=== PATIENT | male | born 1975 | race Hispanic/Latino ===

== ENCOUNTER 2024-02-08 12:20 | Inpatient (IN) | payer BC ==
[~2024-02-08] VITALS: Ht 172.7 cm; Wt 113.0 kg
[~2024-02-08 12:20] MED LIST: ACET-2079 PO
[2024-02-08] MEDS: KETOROLAC 30MG VIAL (30MG/ML) IVP ONE (13:50)
[2024-02-08] MEDS: 0.9%NACL 1000ML 1,000 ML IV ONE (13:50)
[2024-02-08 14:11] LABS: BASOPHILS # (AUTO) 0.02 K/uL (0.00-0.20); BASOPHILS % (AUTO) 0.3 % (0.0-5.0); EOSINOPHILS # (AUTO) 0.07 K/uL (0.00-0.70); HEMATOCRIT 41.8 % (42-54); IMMATURE GRANULOCYTE ABSOLUTE 0.02 K/uL (0-1); LYMPHOCYTES # (AUTO) 1.1 K/uL (1.0-4.8); LYMPHOCYTES % (AUTO) 15.6 % (21.0-51.0); MEAN CORPUSCULAR HGB CONC 35.4 g/dL (32.0-36.0); MEAN CORPUSCULAR VOLUME 84.8 fL (79-99); MONOCYTES # (AUTO) 0.6 K/uL (0.1-1.0); MONOCYTES % (AUTO) 7.7 % (3.0-13.0); NEUTROPHILS # (AUTO) 5.5 K/uL (1.8-7.7); NEUTROPHILS % (AUTO) 75.1 % (40.0-77.0); PLATELET COUNT (AUTO) 142 K/uL (130-400); RED BLOOD CELL COUNT(AUTO) 4.93 MIL/uL (4.50-6.20); RED CELL DISTRIBUTION WIDTH 12.5 % (11.0-15.5); WHITE BLOOD COUNT (AUTO) 7.3 K/uL (4.8-10.8)
[2024-02-08 14:23] LABS: ALBUMIN 3.2 g/dL (3.5-5.0); BILIRUBIN,TOTAL 0.8 mg/dL (0.2-1.0); CREATININE 1.1 mg/dL (0.5-1.3); POTASSIUM 3.1 mmol/L (3.5-5.1); TOTAL PROTEIN, SERUM 7.3 g/dL (6.0-8.3)
[2024-02-08 14:51] LABS: APPEARANCE,URINE CLEAR (CLEAR); BILIRUBIN,URINE NEGATIVE (NEGATIVE); COLOR,URINE YELLOW (YELLOW); GLUCOSE, URINE (UA) 50 mg/dL (NEGATIVE); KETONES,URINE NEGATIVE (NEGATIVE); LEUKOCYTE ESTERASE ,URINE NEGATIVE Leu/uL (NEGATIVE); NITRATE,URINE NEGATIVE (NEGATIVE); OCCULT BLOOD,URINE NEGATIVE (NEGATIVE); PROTEIN,URINE 30 mg/dL (NEGATIVE); UROBILINOGEN,URINE 0.2 mg/dL (0.2-1.0)
[2024-02-08 14:52] LABS: ADD UA MICROSCOPIC YES; MUCUS,URINE FEW LPF (None Seen); RBC,URINE 0-1 /HPF (0-1); SQUAMOUS EPITHELIAL CELL,UR RARE /HPF (0-2)
[2024-02-08] MEDS: ZOSYN 3.375GM +NS 50ML IVPB ONE (16:02)
[2024-02-08] MEDS: POTASSIUM BICARB/CIT AC 25 MEQ TABLET.EFF PO ONE (16:50)
[2024-02-08] MEDS ORDERED: GUAIFENESIN SUGAR-FREE 100 MG/5 ML UDCUP PO PRN (17:00)
[2024-02-08] MEDS ORDERED: LACTULOSE 20 GM/30 ML UDCUP PO PRN (17:00)
[2024-02-08] MEDS ORDERED: MAG/ALUM/SIMETH 30 ML UDCUP PO PRN (17:00)
[2024-02-08] MEDS ORDERED: DOCUSATE SODIUM 100 MG CAP PO PRN (17:00)
[2024-02-08] MEDS ORDERED: NITROGLYCERIN 0.4 MG SL TAB SL PRN (17:00)
[2024-02-08] MEDS ORDERED: GUAIFENESIN-DM 200/20 MG 10 ML PO PRN (17:00)
[2024-02-08] MEDS ORDERED: DIPHENHYDRAMINE HCL 25 MG CAPSULE PO PRN (17:00)
[2024-02-08] MEDS ORDERED: ALPRAZOLAM 0.5 MG TABLET PO PRN (17:00)
[2024-02-08] MEDS ORDERED: ACETAMINOPHEN 325 MG TAB PO PRN (17:00)
[2024-02-08] MEDS ORDERED: DiphenhydrAMINE HCL 50 MG/ML VIAL IV PRN (17:00)
[2024-02-08] MEDS: INSULIN LISPRO 100 UNIT/ML 3ML SQ SCH (17:16)
[2024-02-08] MEDS ORDERED: METRONIDAZOLE 500MG/100ML BAG IV SCH (17:30)
[2024-02-08] MEDS: 0.9%NACL 1000ML 1,000 ML IV SCH (17:33)
[2024-02-08] MEDS: METRONIDAZOLE 500MG/100ML BAG IV SCH (17:33)
[2024-02-08 18:04] LABS: INR <= 0.93 (0.85-1.15); PROTHROMBIN TIME 10.3 SEC (9.6-11.6)
[2024-02-08 18:05] LABS: PARTIAL THROMBOPLASTIN TIME 26.1 SEC (26.3-35.5)
[2024-02-08] MEDS: LEVOFLOXACIN 500 MG/D5W 100 ML 100 ML IV SCH (18:31)
[2024-02-08] MEDS: MEROPENEM 1 GM in 0.9%NACL 100ML 100 ML IVPB SCH (19:49)
[2024-02-08] MEDS: MEROPENEM 1 GM VIAL ONE (19:49)
[2024-02-08] MEDS: FAMOTIDINE 20MG TAB PO SCH (19:56)
[2024-02-08] MEDS: HYDROMORPHONE 1 MG INJ IVP ONE (19:57)
[2024-02-08 23:43] VITALS: O2SAT 97
[2024-02-09] VITALS (7 sets, daily range): BP systolic 133–162; BP diastolic 78–112; PULSE 59–106; RESP 16–18; O2SAT 95–98
[2024-02-09 06:09] LABS: HEMATOCRIT 38.2 % (42-54); MEAN CORPUSCULAR HEMOGLOBIN 30.1 pg (27.0-33.0); MEAN CORPUSCULAR HGB CONC 35.3 g/dL (32.0-36.0); MEAN CORPUSCULAR VOLUME 85.3 fL (79-99); RED BLOOD CELL COUNT(AUTO) 4.48 MIL/uL (4.50-6.20); RED CELL DISTRIBUTION WIDTH 12.5 % (11.0-15.5)
[2024-02-09 06:30] LABS: ALBUMIN 2.9 g/dL (3.5-5.0); BILIRUBIN,TOTAL 0.8 mg/dL (0.2-1.0); CREATININE 0.8 mg/dL (0.5-1.3); POTASSIUM 3.6 mmol/L (3.5-5.1); TOTAL PROTEIN, SERUM 6.6 g/dL (6.0-8.3)
[2024-02-09 06:36] LABS: HEMOGLOBIN A1C 5.9 % (4.0-6.0)
[2024-02-09] MEDS: KETOROLAC 15MG/ML VIAL (15MG/ML) IV ONE (09:04)
[2024-02-09] MEDS: MEROPENEM 1 GM in 0.9%NACL 100ML 100 ML IV ONE (09:51)
[2024-02-09] MEDS ORDERED: COMPOUND IV MISC 1 EACH IVSOLN MISC PRN (10:00)
[2024-02-09] MEDS ORDERED: COMPOUND IV REFRIGERATED 1 EACH IVSOLN MISC PRN (10:00)
[2024-02-09] MEDS: MEROPENEM 1 GM in 0.9%NACL 100ML IV SCH (17:43)
[2024-02-09] MEDS: HYDRALAZINE 20MG/ML VIAL IV PRN (17:51)
[2024-02-09] MEDS: ONDANSETRON 4MG INJ IV PRN (19:49)
[2024-02-09] MEDS: MORPHINE 2 MG SYG IVP PRN (19:50)
[2024-02-09] MEDS: FAMOTIDINE 20MG VIAL IV SCH (20:41)
[2024-02-10] VITALS (8 sets, daily range): BP systolic 129–147; BP diastolic 75–109; PULSE 58–98; RESP 16–20; O2SAT 99
[2024-02-10] MEDS: LACTATED RINGERS 1000ML 1,000 ML IV SCH (00:15)
[2024-02-10] MEDS: ACETAMINOPHEN 325 MG TAB PO PRN (00:21)
[2024-02-10 05:02] LABS: BASOPHILS # (AUTO) 0.02 K/uL (0.00-0.20); BASOPHILS % (AUTO) 0.4 % (0.0-5.0); EOSINOPHILS # (AUTO) 0.11 K/uL (0.00-0.70); HEMATOCRIT 38.6 % (42-54); IMMATURE GRANULOCYTE ABSOLUTE 0.01 K/uL (0-1); LYMPHOCYTES # (AUTO) 1.3 K/uL (1.0-4.8); LYMPHOCYTES % (AUTO) 24.5 % (21.0-51.0); MEAN CORPUSCULAR HEMOGLOBIN 29.5 pg (27.0-33.0); MEAN CORPUSCULAR HGB CONC 35.5 g/dL (32.0-36.0); MEAN CORPUSCULAR VOLUME 83.2 fL (79-99); MONOCYTES # (AUTO) 0.4 K/uL (0.1-1.0); MONOCYTES % (AUTO) 8.2 % (3.0-13.0); NEUTROPHILS # (AUTO) 3.5 K/uL (1.8-7.7); NEUTROPHILS % (AUTO) 64.7 % (40.0-77.0); PLATELET COUNT (AUTO) 155 K/uL (130-400); RED BLOOD CELL COUNT(AUTO) 4.64 MIL/uL (4.50-6.20); RED CELL DISTRIBUTION WIDTH 12.3 % (11.0-15.5); WHITE BLOOD COUNT (AUTO) 5.4 K/uL (4.8-10.8)
[2024-02-10 05:19] LABS: CREATININE 0.9 mg/dL (0.5-1.3); POTASSIUM 3.3 mmol/L (3.5-5.1)
[2024-02-10] MEDS ORDERED: POTASSIUM CHLORIDE 10% ELIXIR 20 MEQ/15 ML UDCUP PO PRN (08:00)
[2024-02-10] MEDS ORDERED: MAGNESIUM 2GM PREMIX 50ML 50 ML IV PRN (08:00)
[2024-02-10] MEDS ORDERED: GLUCAGON 1MG KIT 1 MG ML IM PRN (08:00)
[2024-02-10] MEDS ORDERED: POTASSIUM CHLORIDE 20MEQ/100ML 100 ML IV PRN ×2 (08:00)
[2024-02-10] MEDS ORDERED: DEXTROSE 50%-WATER 50 ML DISP.SYRIN IV PRN (08:00)
[2024-02-10] MEDS: KCL 20 MEQ ERTAB PO PRN (13:09)
[2024-02-10] MEDS: ENOXAPARIN SODIUM 40 MG/0.4 ML SYRINGE SQ SCH (21:29)
[2024-02-11 03:00] VITALS: BP 138/77; PULSE 67; RESP 16
[2024-02-11 04:26] LABS: BASOPHILS # (AUTO) 0.02 K/uL (0.00-0.20); BASOPHILS % (AUTO) 0.4 % (0.0-5.0); EOSINOPHILS # (AUTO) 0.08 K/uL (0.00-0.70); EOSINOPHILS % (AUTO) 1.4 % (0.0-8.0); HEMATOCRIT 41.1 % (42-54); IMMATURE GRANULOCYTE ABSOLUTE 0.02 K/uL (0-1); LYMPHOCYTES # (AUTO) 1.2 K/uL (1.0-4.8); MEAN CORPUSCULAR HEMOGLOBIN 29.9 pg (27.0-33.0); MEAN CORPUSCULAR HGB CONC 35.3 g/dL (32.0-36.0); MEAN CORPUSCULAR VOLUME 84.7 fL (79-99); MONOCYTES # (AUTO) 0.4 K/uL (0.1-1.0); MONOCYTES % (AUTO) 7.8 % (3.0-13.0); NEUTROPHILS # (AUTO) 3.9 K/uL (1.8-7.7); PLATELET COUNT (AUTO) 180 K/uL (130-400); RED BLOOD CELL COUNT(AUTO) 4.85 MIL/uL (4.50-6.20); WHITE BLOOD COUNT (AUTO) 5.7 K/uL (4.8-10.8)
[2024-02-11 04:43] LABS: CREATININE 0.9 mg/dL (0.5-1.3); POTASSIUM 3.2 mmol/L (3.5-5.1)
[2024-02-11 08:00] VITALS: BP 137/84; PULSE 67; RESP 18; O2SAT 97
[2024-02-11] MEDS: LISINOPRIL 10 MG TABLET PO SCH (08:07)
[2024-02-11 12:00] VITALS: BP 121/87; PULSE 76; RESP 20
[2024-02-11] MEDS ORDERED: IOHEXOL-350 50ML VIAL IV ONE (13:53)
[2024-02-11 16:12] VITALS: BP 146/89; PULSE 67; RESP 18
[2024-02-11] MEDS ORDERED: BUTALB/ACETAMINOPHEN/CAFFEINE 1 EACH TABLET PO PRN (16:30)
[2024-02-11] MEDS ORDERED: HYDROCODONE/ACETAMINOPHEN 5/325 MG TAB PO PRN (16:30)
[2024-02-11] MEDS: BUTALB/ACETAMINOPHEN/CAFFEINE 1 EACH TABLET PO ONE (16:34)
[2024-02-11 20:00] VITALS: BP 115/74; PULSE 85; RESP 18; O2SAT 97
[2024-02-12] VITALS (9 sets, daily range): BP systolic 106–150; BP diastolic 70–92; PULSE 57–79; RESP 16–20; O2SAT 96–97
[2024-02-12 04:58] LABS: BASOPHILS # (AUTO) 0.02 K/uL (0.00-0.20); BASOPHILS % (AUTO) 0.3 % (0.0-5.0); EOSINOPHILS % (AUTO) 1.7 % (0.0-8.0); IMMATURE GRANULOCYTE ABSOLUTE 0.01 K/uL (0-1); LYMPHOCYTES # (AUTO) 1.4 K/uL (1.0-4.8); LYMPHOCYTES % (AUTO) 23.1 % (21.0-51.0); MEAN CORPUSCULAR HEMOGLOBIN 29.8 pg (27.0-33.0); MEAN CORPUSCULAR HGB CONC 36.1 g/dL (32.0-36.0); MEAN CORPUSCULAR VOLUME 82.5 fL (79-99); MONOCYTES # (AUTO) 0.5 K/uL (0.1-1.0); NEUTROPHILS # (AUTO) 3.9 K/uL (1.8-7.7); NEUTROPHILS % (AUTO) 65.7 % (40.0-77.0); PLATELET COUNT (AUTO) 175 K/uL (130-400); RED BLOOD CELL COUNT(AUTO) 4.97 MIL/uL (4.50-6.20); RED CELL DISTRIBUTION WIDTH 12.1 % (11.0-15.5); WHITE BLOOD COUNT (AUTO) 5.9 K/uL (4.8-10.8)
[2024-02-12 05:08] LABS: POTASSIUM 3.3 mmol/L (3.5-5.1)
[2024-02-12] MEDS: LISINOPRIL 10 MG TABLET PO SCH (09:03)
[2024-02-12] MEDS ORDERED: DIATR MEGLU/DIATRIZOATE SODIUM 30 ML BOTTLE ONE (17:18)
[2024-02-12] MEDS ORDERED: IOHEXOL-350 75 ML VIAL IV ONE (19:53)
[2024-02-13 03:00] VITALS: BP 130/77; PULSE 62; RESP 19
[2024-02-13 05:10] LABS: BASOPHILS # (AUTO) 0.02 K/uL (0.00-0.20); BASOPHILS % (AUTO) 0.3 % (0.0-5.0); EOSINOPHILS # (AUTO) 0.08 K/uL (0.00-0.70); EOSINOPHILS % (AUTO) 1.2 % (0.0-8.0); HEMATOCRIT 40.9 % (42-54); IMMATURE GRANULOCYTE ABSOLUTE 0.02 K/uL (0-1); LYMPHOCYTES # (AUTO) 1.2 K/uL (1.0-4.8); LYMPHOCYTES % (AUTO) 18.3 % (21.0-51.0); MEAN CORPUSCULAR HEMOGLOBIN 29.7 pg (27.0-33.0); MEAN CORPUSCULAR HGB CONC 34.7 g/dL (32.0-36.0); MEAN CORPUSCULAR VOLUME 85.6 fL (79-99); MONOCYTES # (AUTO) 0.5 K/uL (0.1-1.0); MONOCYTES % (AUTO) 7.2 % (3.0-13.0); NEUTROPHILS # (AUTO) 4.8 K/uL (1.8-7.7); NEUTROPHILS % (AUTO) 72.7 % (40.0-77.0); PLATELET COUNT (AUTO) 167 K/uL (130-400); RED BLOOD CELL COUNT(AUTO) 4.78 MIL/uL (4.50-6.20); RED CELL DISTRIBUTION WIDTH 12.2 % (11.0-15.5); WHITE BLOOD COUNT (AUTO) 6.7 K/uL (4.8-10.8)
[2024-02-13 05:17] LABS: MAGNESIUM 2.1 mg/dL (1.80-2.40); POTASSIUM 3.6 mmol/L (3.5-5.1)
[2024-02-13 08:00] VITALS: BP 104/73; PULSE 54; RESP 18
[2024-02-13 09:00] VITALS: O2SAT 95
[2024-02-13 12:00] VITALS: BP 130/81; PULSE 61; RESP 18
[2024-02-13] MEDS ORDERED: AMOX-426 PO (12:35)
== END 2024-02-13 13:35 | disposition home or self-care (01) | DRG 392 ==
LOC: EDH 12:20 → EDHIP 16:35 → 3CH 23:17
PROVIDERS: ADMIT Internal Medicine Critical Care Medicine; ATTEND Internal Medicine Critical Care Medicine
DX: K57.20 Diverticulitis of large intestine with perforation and abscess without bleeding (principal); R78.81 Bacteremia; I12.9 Hypertensive chronic kidney disease with stage 1 through stage 4 chronic kidney disease, or unspecified chronic kidney disease; E11.65 Type 2 diabetes mellitus with hyperglycemia; B96.89 Other specified bacterial agents as the cause of diseases classified elsewhere; E11.22 Type 2 diabetes mellitus with diabetic chronic kidney disease; E66.01 Morbid (severe) obesity due to excess calories; E87.6 Hypokalemia; E88.09 Other disorders of plasma-protein metabolism, not elsewhere classified; G44.209 Tension-type headache, unspecified, not intractable; N18.2 Chronic kidney disease, stage 2 (mild); Z68.37 Body mass index [BMI] 37.0-37.9, adult; M54.2 Cervicalgia; Z79.899 Other long term (current) drug therapy; Z83.3 Family history of diabetes mellitus; Z98.84 Bariatric surgery status; Z90.49 Acquired absence of other specified parts of digestive tract
CPT/HCPCS: 36415; 70450; 70460; 74177; 80048; 80053; 81001; 82948; 83036; 83605; 83690; 83735; 85025; 85027; 85610; 85730; 86850; 86900; 86901; 87040; 96365; 96375; G0378; J0360; J1170; J1650; J1885; J1956; J2185; J2270; J2405; J2543; J3490; J7030; Q9963; Q9967

== ENCOUNTER 2025-08-29 14:37 | Emergency (ER) | payer BC ==
[~2025-08-29] VITALS: Ht 177.8 cm; Wt 113.4 kg
[~2025-08-29 14:37] MED LIST changes: -ACET-2079 PO; +AMOX-426 PO
[2025-08-29 15:10] LABS: SARS-CoV-2, RNA, NAAT NEGATIVE SARS CoV-2 (NEGATIVE)
[2025-08-29 15:14] LABS: INFLUENZA TYPE B Negative For Type B (NEGATIVE)
[2025-08-29 15:24] LABS: INFLUENZA TYPE A Positive For Type A (NEGATIVE)
[2025-08-29 15:53] LABS: IMMATURE GRANULOCYTE ABSOLUTE 0.02 K/uL (0-1); NUCLEATED RED BLOOD CELLS 0.0 % (0.0-0.19); PLATELET COUNT (AUTO) 108 K/uL (130-400); RED BLOOD CELL COUNT(AUTO) 5.35 MIL/uL (4.50-6.20); RED CELL DISTRIBUTION WIDTH 13.4 % (11.0-15.5); WHITE BLOOD COUNT (AUTO) 4.5 K/uL (4.8-10.8)
[2025-08-29 15:57] LABS: CREATININE 1.2 mg/dL (0.5-1.3); GLOMERULAR FILTR. RATE CALC 73.0 mL/min (>90); GLUCOSE,RANDOM 183.0 mg/dL (70-105); SODIUM SERUM 137.0 mmol/L (136-145); UREA NITROGEN, BLOOD 13.0 mg/dL (7-18)
--- NOTE | 2025-08-29 15:57 | HMCIMG ---
EXAM: CR CHEST, 1 VIEW CLINICAL HISTORY: Cough COMPARISON: Not provided TECHNIQUE: Single frontal radiograph of the chest was obtained. FINDINGS: Lines/Devices: None. Lungs: Mild vascular congestion. No consolidation or ground-glass opacities are observed. There is no pleural effusion. There is no pneumothorax. Mediastinum and cardiovascular structures: The cardiac silhouette is not enlarged. The central airway and mediastinal contours are unremarkable. Bones and soft tissues: Unremarkable. IMPRESSION: 1. Mild vascular congestion seen. /[place]
[2025-08-29] MEDS: 0.9%NACL 1000ML 1,000 ML IV STA (16:12)
[2025-08-29] MEDS: FAMOTIDINE 20MG VIAL IV ONE (16:12)
[2025-08-29] MEDS ORDERED: AMOX1TAB16 PO (17:00)
[2025-08-29] MEDS ORDERED: OSEL75 PO (17:00)
[2025-08-29] MEDS ORDERED: ACYC15OI7 TP (17:01)
--- NOTE | 2025-08-29 17:02 | ERN ---
ED Note History of Present Illness Stated Complaint: FEVER Chief Complaint: Fever Time Seen by MD: 14:40 Time Seen by Midlevel: 14:44 Dictation: 50 ear old male with no significant medical history coming in with complaints of flu-like symptoms pressure in the sinuses and fever blisters around the mouth. Patient states this has been going on for the last few days. Was seen at the urgent care on Thursday and was placed on cefdinir and prednisone. Patient is stating he is still has a lot of body aches and sinus pressure. Denies any purulent drainage from his nose but he is complaining of pain on to his forehead. Any chest pain or chest discomfort. Allergies: Coded Allergies: No Known Drug Allergies (Unverified Allergy, Unknown, 09/05/22) Home Meds Active Scripts Amoxicillin/Potassium Clav (Augmentin 500-125 Tablet) 500 Mg-125 Mg Tablet, 1 EACH PO BID for 10 Days, #20 TAB Prov:YOLI JAMESON [facility] 02/13/24 Past Medical History Past Medical History: No Pertinent History Surgical History: Appendectomy, Cholecystectomy, Bariatric Surgery Review of System Dictation Constitutional: Complaining of fever body aches Eyes: Negative for injury, pain,redness, and discharge ENT: Complaining of sinus pressure Cardiovascular: Negative for chest pain, palpitations, and edema Respiratory: Complaining of cough Abdomen/GI: Negative for abdominal pain, nausea, vomiting, diarrhea, and constipation Back: Negative for injury and pain : Negative for injury, bleeding and discharge MS/Extremity: Negative for injury and deformity Skin: Negative for rash, and discoloration Neuro: Negative for headache, weakness, numbness, tingling, and seizure Psych: Negative for suicide ideation, homicidal ideation, and hallucinations Review of Systems: was completed Initial Vital Sign VS Vital Signs Date Time Temp Pulse Resp B/P (MAP) Pulse Ox O2 Delivery O2 Flow Rate FiO2 08/29/25 14:40 99.5 105 20 154/84 99 Room Air 08/29/25 16:37 0 21 Physical Exam Dictation General: awake, alert, NAD Head/Face: Normocephalic, atraumatic Eyes: PERRL, EOMI, vision at baseline ENT: oral cavity clear, TMs clear, no signs of infectionn no drainage from the nasal cavity however swollen turbinates, pain on palpation to the sinus cavity Neck: Trachea midline, supple, no nuchal rigidity Cardiovascular: RRR, normal S1/S2, No MRGs, no JVD Respiratory: CTAB, no respiratory distress, No rales or wheezes Abdomen: Soft, non-tender, non-distended, normal bowel sounds, no guarding or rebound. Skin: Warm, dry, normal turgor, no rash MS/Extremity: Pulses equal, no cyanosis, neurovascular intact, FROM Neuro: COAx4, GCS 15, strength 5/5, CN 2-12 intact, normal cerebellar exam, normal gait, Psych: Normal behavior, mood, and affect normal Results (Laboratory/Radiology) Laboratory/Radiology Laboratory Tests Test 08/29/25 14:48 08/29/25 15:42 Influenza Type A Antigen Positive For Type A Influenza Type B Antigen Negative For Type B SARS-CoV-2, RNA, NAAT NEGATIVE SARS CoV-2 White Blood Count 4.5 K/uL (4.8-10.8) L Red Blood Count 5.35 MIL/uL (4.50-6.20) Hemoglobin 15.5 g/dL (14.0-18.0) Hematocrit 45.3 % (42-54) Mean Corpuscular Volume 84.7 fL (79-99) Mean Corpuscular Hemoglobin 29.0 pg (27.0-33.0) Mean Corpuscular Hemoglobin Concent 34.2 g/dL (32.0-36.0) Red Cell Distribution Width 13.4 % (11.0-15.5) Platelet Count 108 K/uL (130-400) L Mean Platelet Volume 11.7 fL (7.5-10.5) H Immature Granulocyte % (Auto) 0.4 % (0-1) Neutrophils (%) (Auto) 70.7 % (40.0-77.0) Lymphocytes (%) (Auto) 17.9 % (21.0-51.0) L Monocytes (%) (Auto) 11.0 % (3.0-13.0) Eosinophils (%) (Auto) 0.0 % (0.0-8.0) Basophils (%) (Auto) 0.0 % (0.0-5.0) Neutrophils # (Auto) 3.2 K/uL (1.8-7.7) Lymphocytes # (Auto) 0.8 K/uL (1.0-4.8) L Monocytes # (Auto) 0.5 K/uL (0.1-1.0) Eosinophils # (Auto) 0.00 K/uL (0.00-0.70) Basophils # (Auto) 0.00 K/uL (0.00-0.20) Absolute Immature Granulocyte (auto 0.02 K/uL (0-1) Nucleated Red Blood Cells 0.0 % (0.0-0.19) Sodium Level 137 mmol/L (136-145) Potassium Level 3.5 mmol/L (3.5-5.1) Chloride Level 103 mmol/L (101-111) Carbon Dioxide Level 28 mmol/L (21-32) Blood Urea Nitrogen 13 mg/dL (7-18) Creatinine 1.2 mg/dL (0.5-1.3) Glomerular Filtration Rate Calc 73 mL/min (>90) Random Glucose 183 mg/dL (70-105) H Total Calcium 8.4 mg/dL (8.5-10.1) L Labs Reviewed?: Yes X-RAY Comment: [address] [id number] IMAGING REPORT Signed PATIENT: TARUN GRACIA MR#: [id number] : 1975 SEX: M AGE: 50 LOCATION: [facility] ORDER 44 STATUS: REG REPORT#: [id number] SERVICE 144 REASON: cough ORDERING PHYSICIAN: KHADRA WU CNP PROCEDURE: CXR1VW - CHEST 1VW EXAM: CR CHEST, 1 VIEW CLINICAL HISTORY: Cough COMPARISON: Not provided TECHNIQUE: Single frontal radiograph of the chest was obtained. FINDINGS: Lines/Devices: None. Lungs: Mild vascular congestion. No consolidation or ground-glass opacities are observed. There is no pleural effusion. There is no pneumothorax. Mediastinum and cardiovascular structures: The cardiac silhouette is not enlarged. The central airway and mediastinal contours are unremarkable. Bones and soft tissues: Unremarkable. IMPRESSION: 1. Mild vascular congestion seen. /[place] DICTATED BY: GLENDY STEVENS MD DATE: 08/29/251655 ELECTRONICALLY SIGNED BY: GLENDY STEVENS MD DATE: 08/29/251655 ED Course ED Course Orders Procedure Category Date Status Time Covid Rna Naat LAB 08/29/25 Complete 14:44 Influenza Type A & B, LAB 08/29/25 Complete Rapid 14:44 Chest 1vw RAD 08/29/25 Resulted 14:44 Cbc With Differential LAB 08/29/25 Complete 14:44 Basic Metabolic Panel LAB 08/29/25 Complete 14:44 0.9%Nacl 1000ml (Ns PHA 08/29/25 Complete 1000ml) 14:44 Ondansetron 4mg Inj PHA 08/29/25 Complete (Zofran 4mg Inj) 15:00 Famotidine 20mg Vial PHA 08/29/25 Complete (Pepcid 20mg Vial) 15:00 Ketorolac PHA 08/29/25 Complete Tromethamine 15mg/Ml 15:00 Acetaminophen 500mg PHA 08/29/25 Complete Tab (Tylenol 500mg T 15:00 Current Medications Medications (Trade) Dose Ordered Sig/Gomez Route PRN Reason Start Time Stop Time Status Last Admin Dose Admin Acetaminophen (TYLenol 500MG TAB) 1,000 mg ONCE ONCE PO 08/29/25 15:00 08/29/25 15:01 DC 08/29/25 16:14 Famotidine (Pepcid 20mg Vial) 20 mg ONCE ONCE IV 08/29/25 15:00 08/29/25 15:01 DC 08/29/25 16:12 Ketorolac Tromethamine (toRADol) 15 mg ONCE ONCE IV 08/29/25 15:00 08/29/25 15:01 DC 08/29/25 16:13 Ondansetron HCl (zoFRAN 4MG INJ) 4 mg ONCE ONCE IVP 08/29/25 15:00 08/29/25 15:01 DC 08/29/25 16:12 Sodium Chloride 1,000 ml @ 1,000 mls/hr Q1H STAT IV 08/29/25 14:44 08/29/25 15:43 DC 08/29/25 16:12 Vital Signs Date Time Temp Pulse Resp B/P (MAP) Pulse Ox O2 Delivery O2 Flow Rate FiO2 08/29/25 16:37 99.0 95 18 147/79 99 Room Air* 0 21 08/29/25 16:14 100.0 08/29/25 14:40 99.5 105 20 154/84 99 Room Air Medical Decision Making MDM MDM: 50 ear old male with no significant medical history coming in with c omplaints of flu-like symptoms pressure in the sinuses and fever blisters around the mouth. Patient states this has been going on for the last few days. Was seen at the urgent care on Thursday and was placed on cefdinir and prednisone. Patient is stating he is still has a lot of body aches and sinus pressure. Denies any purulent drainage from his nose but he is complaining of pain on to his forehead. Any chest pain or chest discomfort. CBC shows white count of 4, no anemia, mild thrombocytopenia of 108, these are all most likely related to viral infection. Chemistry shows no electrolyte abnormality. Normal kidney function. Mild elevation of glucose of183 this could be with the patient's taking prednisone as he relates no diabetic history. Serologies positive for influenza A. Chest x-ray did not show any consolidations or infiltrates. Patient received fluids, Toradol. Patient states feels better. We will change his cefdinir for Augmentin and add Tamiflu. Educated to follow up with primary care in 1-2 days for the hospital as needed. Differential diagnosis:, flu, pneumonia, COVID Rationale: Tests considered and ordered secondary to shared decision making include: Previous outside records reviewed: Old ER visits. Risk of complication and/or morbidity or mortality of patient management: None Medications-Per medication reconciliation Need for hospitalization: Patient does not meet criteria for hospitalization. Need for emergency major/minor surgery: No There are no social concerns with this patient. Prescription drug management Prescriptions will include symptomatic care Patient's prior external medical records from other ER visits were reviewed by me as indicated. Prior testing and results from previous visits were reviewed. Prior tests were taken into account with medical decision making and resource utilization, independent historian/historians were used to obtain complete medical history. I independently interpreted the test that were performed, results were reviewed by me and considered findings on radiology if ordered. Medical management and examination interpretation discussions were had by me with other qualified healthcare professionals as indicated for the patient's care. DX & DISP Disposition: Discharge Departure Impression: Primary Impression: Influenza A Additional Impression: Sinusitis Condition: Stable Scripts Acyclovir (Acyclovir) 5 % Oint...g. 1 APPL TP Q4H for 4 Days, #15 GM 0 Refills Prov: KHADRA WU CNP 08/29/25 Oseltamivir Phosphate (Tamiflu) 75 Mg Cap 75 MG PO BID for 5 Days, #10 CAP Prov: KHADRA WU CNP 08/29/25 Amoxicillin/Potassium Clav (Amox Tr-K Clv 875-125 mg Tab) 875 Mg-125 Mg Tablet 1 EACH PO BID for 5 Days, #10 TAB 0 Refills Prov: KHADRA WU CNP 08/29/25 Additional Instructions: You tested positive for flu A here. Chest x-ray does not show any pneumonia. I am going to take your cefdinir to Augmentin. Follow up with your primary care doctor in 1-2 days. Return to the hospital if any worsening symptoms. Referrals: TIANA WALTERS (PCP) Time of Disposition: 16:59 I have reviewed the case, and I agree with, Diagnosis and Plan KHADRA WU CNP Aug 29, 2025 17:02
--- NOTE | 2025-08-29 17:11 | NUR ---
PT IS READY FOR DISCHARGE AFTER IV FLUIDS ARE COMPLETE
[2025-08-29 17:31] VITALS: TEMP 98.9
[2025-08-29 17:32] VITALS: BP 135/76; PULSE 85; RESP 18; TEMP 98.9; O2SAT 99
== END 2025-08-29 17:35 | disposition home or self-care (01) ==
LOC: EDH 14:37
DX: J10.1 Influenza due to other identified influenza virus with other respiratory manifestations (principal); J32.9 Chronic sinusitis, unspecified; Z90.49 Acquired absence of other specified parts of digestive tract; Z98.84 Bariatric surgery status; Z20.822 Contact with and (suspected) exposure to COVID-19
CPT/HCPCS: 99284; 96374; 96375; 71045; 87635; 96361; 80048; 85025; 87804 ×2; 36415; J1885; J1308; J7030; J2405